=== PATIENT | male | born 1970 | race Caucasian/White ===

== ENCOUNTER 2017-03-25 02:20 | Emergency (ER) | payer OTHER ==
[~2017-03-25] VITALS: Ht 177.8 cm; Wt 77.1 kg
--- NOTE | ~2017-03-25 | CR20 ---
[facility] A Service of [facility] RADIOLOGY TEXT RESULTS PATIENT: AVANI MCFARLAND LOCATION: [facility] : 66 UNIT #: [id number] AGE: [address]: Prosper Eldridge SEX: M ORDER DR: [id number] [facility] [address] [place], [place] [address] [id number] MR#: [id number] Acc #: [id number] NAME: AVANI MCFARLAND : 1970 SEX: M STUDY DATE/TIME: 03/25/2017 2:41 UNIT: [facility] ROOM: STUDY DESCRIPTION: CR Ankle Min 3 Views Lt Attending Physician: Prosper Eldridge P.A.-C. Ordering Physician: Ed Doctor [id number] [facility] Primary Care Physician: Torrey Villeda M.D. MEDICAL IMAGING REPORT This report is preliminary unless electronic signature is present EXAM Left ankle, 03/25/2017 HISTORY 47-year-old male in the ED complaining of left ankle pain after a fall from ladder today. TECHNIQUE Three-view left ankle series. FINDINGS The examination shows a comminuted intraarticular fracture through the mid and posterior portions of the calcaneus. There is no compress or collapse of the calcaneal angle. No other hindfoot or ankle fracture is seen. Predominantly lateral and dorsal soft tissue swelling is noted. IMPRESSION Comminuted calcaneus fracture. Dictated by... Dilip Dean M.D. THIS IS AN ELECTRONICALLY VERIFIED REPORT Dilip Dean M.D. at 03/25/2017 9:58 PM [employer] TD: 03/25/2017 10:35 JOB #: [id number] MEDICAL IMAGING REPORT Page 1 of 1 COPY
== END 2017-03-25 04:45 | disposition home or self-care (01) ==
LOC: CED 02:20
DX: S92.062A Displaced intraarticular fracture of left calcaneus, initial encounter for closed fracture (principal); F17.210 Nicotine dependence, cigarettes, uncomplicated; W11.XXXA Fall on and from ladder, initial encounter; Y92.009 Unspecified place in unspecified non-institutional (private) residence as the place of occurrence of the external cause
CPT/HCPCS: 29515; 73610; 99283